=== PATIENT | male | born 1975 | race African-American/Black ===

== ENCOUNTER 2021-02-03 21:52 | Inpatient (IN) ==
[2021-02-03] MEDS ORDERED: ASPIRIN 325 MG TABLET PO STA (22:45)
[2021-02-03] MEDS ORDERED: SODIUM CHLORIDE 0.9% 1,000 ML IV STA ×2 (22:45→22:47)
[2021-02-03] MEDS ORDERED: ONDANSETRON 4 MG/2 ML VIAL IV STA (22:45)
[2021-02-03 23:18] LABS: Basophils % 0.3 % (0.0-0.8); Eosinophils % 0.1 % (0.00-10.9); Hematocrit 50.3 VOL% (42.0-52.0); Hemoglobin 16.4 GM/DL (14.0-18.0); Immature Granulocytes % 0.4 %; Immature Granulocytes Absolute 0.05 #; Lymphocytes # 2.1 10*3/uL (1.4-4.0); Mean Corpuscular HGB Conc 32.6 GM/DL (32-36); Mean Corpuscular Volume 89.8 FL (87-102); Mean Platelet Volume 11.5 FL (9.6-12.0); Monocytes % 8.5 % (1.7-12.7); Neutrophils % 75.7 % (38.7-73.9); Platelet Count 235 T/CUMM (130-400); Red Cell Distribution Width 14.3 % (9.3-17.3); White Blood Count 14.3 T/CUMM (4-12)
[2021-02-03 23:28] LABS: Albumin 5.2 G/DL (3.4-5.0); Bilirubin,Total 1.3 MG/DL (0.2-1.0); Calcium 10.3 MG/DL (8.5-10.1); Osmolality,Calculated 274.1 MOS/KG (273-304); Potassium 4.3 MMOL/L (3.5-5.1); Total Protein 8.9 G/DL (6.4-8.2)
[2021-02-04 00:46] LABS: Bacteria,Urine Occasional /HPF (Few); Bilirubin,Urine Negative (Negative); Blood, Urine Small mg/dL (Negative); Glucose,Urine (UA) Negative (Negative); Granular Casts,Urine 7 /LPF (0-1); Hyaline Casts,Urine 7 /LPF (0-3); Ketones,Urine 20 mg/dL (Negative); Mucus,Urine Occasional /LPF (Occasional); Nitrite,Urine Negative (Negative); Protein,Urine Negative; RBC,Urine 7 /HPF (0-4); Urine Appearance CLEAR (Clear); Urine Color Yellow (Yellow); Urine Specific Gravity 1.015 (1.001-1.035); Urine Urobilinogen < 2.0 EU/DL (0.2-1.0)
[2021-02-04] MEDS ORDERED: KETOROLAC 30 MG/1 ML VIAL ONE (01:34)
[2021-02-04] MEDS ORDERED: KETOROLAC 30 MG/1 ML VIAL IV STA (01:43)
[2021-02-04] MEDS ORDERED: NICOTINE 21 MG/24 HR PATCH TRANSDERM PRN (02:40)
[2021-02-04] MEDS ORDERED: ONDANSETRON 4 MG/2 ML VIAL IV PRN (02:40)
[2021-02-04] MEDS ORDERED: GLUCAGON 1 MG VIAL IM PRN (02:40)
[2021-02-04] MEDS ORDERED: DEXTROSE 50% 25 GM/50 ML VIAL IV PRN (02:40)
[2021-02-04] MEDS ORDERED: hydrALAZINE 20 MG/1 ML VIAL IV PRN (02:40)
[2021-02-04] MEDS: PANTOPRAZOLE 40 MG VIAL IV SCH ×3 (03:30→21:48)
[2021-02-04] MEDS: SODIUM CHLORIDE 0.9% 1,000 ML IV SCH ×3 (03:31→22:40)
[2021-02-04] MEDS: MORPHINE 4 MG/1 ML VIAL IV PRN ×3 (09:22→21:48)
[2021-02-05] MEDS: MORPHINE 4 MG/1 ML VIAL IV PRN ×2 (00:57→08:42)
[2021-02-05 05:41] LABS: Basophils % 0.3 % (0.0-0.8); Eosinophils # 0.1 10*3/uL (0.0-0.87); Eosinophils % 1.3 % (0.00-10.9); Hematocrit 42.7 VOL% (42.0-52.0); Hemoglobin 13.6 GM/DL (14.0-18.0); Immature Granulocytes % 0.3 %; Immature Granulocytes Absolute 0.02 #; Lymphocytes # 2.9 10*3/uL (1.4-4.0); Lymphocytes % 42.8 % (21.2-54.2); Mean Corpuscular HGB Conc 31.9 GM/DL (32-36); Mean Corpuscular Volume 90.1 FL (87-102); Mean Platelet Volume 10.8 FL (9.6-12.0); Monocytes % 7.6 % (1.7-12.7); Neutrophils % 47.7 % (38.7-73.9); Platelet Count 161 T/CUMM (130-400); Red Blood Count 4.74 MC/CUMM (3.8-5.5); Red Cell Distribution Width 14.1 % (9.3-17.3); White Blood Count 6.7 T/CUMM (4-12)
[2021-02-05 06:01] LABS: Albumin 3.2 G/DL (3.4-5.0); Calcium 8.1 MG/DL (8.5-10.1); Osmolality,Calculated 274.5 MOS/KG (273-304); Potassium 3.4 MMOL/L (3.5-5.1); Total Protein 5.9 G/DL (6.4-8.2)
[2021-02-05] MEDS: PANTOPRAZOLE 40 MG VIAL IV SCH (08:42)
[2021-02-05] MEDS: SODIUM CHLORIDE 0.9% 1,000 ML IV SCH (14:03)
[2021-02-05 16:18] VITALS: BP 150/89
== END 2021-02-05 17:18 | disposition home or self-care (01) | DRG 641 ==
LOC: N.ED 21:52 → N.EDINP 21:52 → N.5E 02-04 04:15 → SUATTDRO 02-04 13:23
PROVIDERS: ADMIT Internal Medicine; ATTEND Hospitalist